=== PATIENT | male | born 1950 | race Caucasian/White ===

== ENCOUNTER 2021-12-10 04:27 | Inpatient (IN) | payer BC ==
[~2021-12-10] VITALS: Ht 177.8 cm; Wt 119.1 kg
[~2021-12-10 04:27] MED LIST: AMLO-496 PO; ASPI1TAB20 PO; FLUO10CA15 PO; LISI20TA28 PO; LOVA40TA72 PO; MULT-228 PO; OLAN20TA30 PO; TRAZ100T3 PO; [UNRECOGNIZED DRUG - CODE] PO
[2021-12-10] MEDS ORDERED: ALBUTEROL SULF 2.5 MG/0.5ML(0.5%) NEB SOLN HHN ONE (04:45)
[2021-12-10] MEDS ORDERED: ONDANSETRON HCL 4 MG/2 ML VIAL IV ONE (04:45)
[2021-12-10] MEDS ORDERED: IPRATROPIUM BROM 0.5 MG/2.5ML INH SOL HHN ONE (04:45)
[2021-12-10] MEDS ORDERED: methylPREDNISolone SOD SUCC 125 MG/2 ML VL IV ONE (04:45)
[2021-12-10] MEDS ORDERED: levoFLOXacin 500MG 100 ML IV ONE (05:15)
[2021-12-10 05:36] LABS: Basophils # (auto) 0 10 ^3/uL (0-0.2); Basophils % (auto) 0.4 % (0.0-2.0); Eosinophils # (auto) 0 10 ^3/uL (0-0.8); Eosinophils % (auto) 0.2 % (0.0-7.0); Hematocrit 25.4 % (41.0-53.0); Hemoglobin 8.9 g/dL (13.5-17.5); Lymphocytes # (auto) 0.8 10 ^3/uL (0.4-5.4); Lymphocytes % (auto) 6.4 % (10.0-50.0); Mean Corpuscular Hemoglobin 29.7 pg (28.0-32.0); Mean Corpuscular Hgb Conc. 34.9 g/dL (32.0-36.0); Mean Corpuscular Volume 85.3 fL (80.0-100.0); Monocytes # (auto) 1.1 10 ^3/uL (0-1.3); Monocytes % (auto) 8.4 % (0.0-12.0); Neutrophils # (auto) 10.7 10 ^3/uL (1.6-8.6); Neutrophils % (auto) 84.6 % (37.0-80.0); Red Blood Cells 2.98 10^6/uL (4.5-5.90); Red Cell Distribution Width 13.9 % (11.8-14.3); White Blood Cell 12.6 10^3/uL (4.4-10.8)
[2021-12-10 05:42] LABS: Albumin 3.2 g/dL (3.4-5.0); Calcium 7.9 mg/dL (8.5-10.1); Potassium 3.6 mmol/L (3.5-5.1)
[2021-12-10 05:46] LABS: BUN/Creatinine Ratio 16.2; Bilirubin, Total 0.8 mg/dL (0.2-1.0); Total Protein 5.9 g/dL (6.4-8.2)
[2021-12-10] MEDS ORDERED: NITROGLYCERIN 0.4 MG SL TAB SL PRN (10:15)
[2021-12-10] MEDS ORDERED: MORPHINE SULFATE INJ 2 MG/ml SYRG IV PRN (10:15)
[2021-12-10] MEDS ORDERED: hydrALAZINE HCL 20 MG/ML VL IV PRN (11:30)
[2021-12-10] MEDS ORDERED: NICOTINE 7MG/24HR TOPICAL PATCH TD ONE (11:30)
[2021-12-10 11:45] LABS: Cholesterol 86 mg/dL (< 200)
[2021-12-10 11:48] LABS: HDL Cholesterol 58 mg/dL (40-59); LDL Cholesterol 27 mg/dL (< 100); Triglycerides 45 mg/dL (< 150)
[2021-12-10] MEDS: ALBUTEROL SULF 2.5 MG/0.5ML(0.5%) NEB SOLN NEB SCH ×2 (12:28→19:29)
[2021-12-10] MEDS: IPRATROPIUM BROM 0.5 MG/2.5ML INH SOL NEB SCH ×2 (12:28→19:28)
[2021-12-10 14:25] VITALS: BP 127/82
[2021-12-10] MEDS: OLANZapine 5 MG TAB PO SCH (21:21)
[2021-12-10] MEDS: ATORVASTATIN 20 MG TAB PO SCH (21:21)
[2021-12-10] MEDS: traZODone HCL 50 MG TAB PO SCH (21:22)
[2021-12-10] MEDS: methylPREDNISolone SOD SUCC 125 MG/2 ML VL IV SCH (21:23)
[2021-12-10 22:00] VITALS: BP 134/65
[2021-12-10] MEDS: DESIPRAMINE HCL 10 MG PO SCH (22:00)
[2021-12-11] VITALS (17 sets, daily range): BP systolic 97–222; BP diastolic 44–97
[2021-12-11] MEDS: IPRATROPIUM BROM 0.5 MG/2.5ML INH SOL NEB PRN (02:17)
[2021-12-11] MEDS: ALBUTEROL SULF 2.5 MG/0.5ML(0.5%) NEB SOLN NEB PRN (02:17)
[2021-12-11 05:37] LABS: Basophils # (auto) 0.1 10 ^3/uL (0-0.2); Basophils % (auto) 0.2 % (0.0-2.0); Eosinophils # (auto) 0 10 ^3/uL (0-0.8); Hematocrit 24.3 % (41.0-53.0); Hemoglobin 8.6 g/dL (13.5-17.5); Lymphocytes # (auto) 0.7 10 ^3/uL (0.4-5.4); Lymphocytes % (auto) 2.9 % (10.0-50.0); Mean Corpuscular Hemoglobin 29.5 pg (28.0-32.0); Mean Corpuscular Hgb Conc. 35.6 g/dL (32.0-36.0); Mean Corpuscular Volume 82.8 fL (80.0-100.0); Neutrophils # (auto) 23.3 10 ^3/uL (1.6-8.6); Neutrophils % (auto) 92.9 % (37.0-80.0); Red Blood Cells 2.93 10^6/uL (4.5-5.90); Red Cell Distribution Width 13.7 % (11.8-14.3)
[2021-12-11 05:41] LABS: Calcium 8.4 mg/dL (8.5-10.1); Potassium 3.6 mmol/L (3.5-5.1)
[2021-12-11 05:45] LABS: Albumin 3.2 g/dL (3.4-5.0); BUN/Creatinine Ratio 26.6
[2021-12-11 05:46] LABS: Bilirubin, Total 0.8 mg/dL (0.2-1.0); Total Protein 6.7 g/dL (6.4-8.2)
[2021-12-11] MEDS: ALBUTEROL SULF 2.5 MG/0.5ML(0.5%) NEB SOLN NEB SCH ×3 (06:07→18:08)
[2021-12-11] MEDS: IPRATROPIUM BROM 0.5 MG/2.5ML INH SOL NEB SCH ×3 (06:07→18:08)
[2021-12-11] MEDS: cefTRIAXone 1GM/50ML D5W 50 ML IV SCH (08:20)
[2021-12-11] MEDS: FLUoxetine HCL 10 MG CAP PO SCH (09:30)
[2021-12-11] MEDS: ASPirin-EC 81 mg tab PO SCH (09:30)
[2021-12-11] MEDS: amLODIPine BESYLATE 5 MG TAB PO SCH (09:31)
[2021-12-11] MEDS: LISINOPRIL 20 MG TAB PO SCH (09:31)
[2021-12-11] MEDS: ENOXAPARIN SOD 40 MG/0.4 ML SYRINGE SC SCH (09:31)
[2021-12-11] MEDS: methylPREDNISolone SOD SUCC 125 MG/2 ML VL IV SCH ×2 (09:33→22:00)
[2021-12-11] MEDS: AZITHROMYCIN 500MG/ 250ML 250 ML IV SCH (09:33)
[2021-12-11] MEDS: NICOTINE 7MG/24HR TOPICAL PATCH TD SCH (09:40)
[2021-12-11] MEDS ORDERED: FUROSEMIDE 40 MG/4 ML VIAL IV ONE (10:30)
[2021-12-11 12:57] LABS: Urine Bacteria NONE SEEN /hpf (None Seen); Urine Blood TRACE /uL (Negative); Urine Specific Gravity 1.012 (1.001-1.035); Urine WBC 1 /hpf (0 - 3)
[2021-12-11] MEDS: DESIPRAMINE HCL 10 MG PO SCH (22:00)
[2021-12-11] MEDS: OLANZapine 5 MG TAB PO SCH (22:00)
[2021-12-11] MEDS: ATORVASTATIN 20 MG TAB PO SCH (22:00)
[2021-12-11] MEDS: traZODone HCL 50 MG TAB PO SCH (22:00)
[2021-12-11] MEDS ORDERED: LORazepam 2MG/ML-1ML VIAL ONE (22:47)
[2021-12-11] MEDS ORDERED: ETOMIDATE (2MG/ML) 20ML VIAL IV ONE (23:17)
[2021-12-11] MEDS ORDERED: SUCCINYLCHOLINE CHLORIDE 20 MG/ML 10ML VIAL IV ONE ×2 (23:18→23:30)
[2021-12-11] MEDS: PROPOFOL 100 ML IV SCH (23:35)
[2021-12-11] MEDS ORDERED: PROPOFOL 100 ML IV ONE (23:35)
[2021-12-11] MEDS ORDERED: fentaNYL Drip 2500mCg/250mlNS 250 ML IV ONE (23:47)
[2021-12-12] VITALS (105 sets, daily range): BP systolic 58–139; BP diastolic 21–93
[2021-12-12] MEDS ORDERED: NOREPINEPHRINE 8 MG/250ML KIT 250 ML IV ONE (00:25)
[2021-12-12] MEDS: NOREPINEPHRINE 8 MG/250ML KIT 250 ML IV SCH ×2 (00:30→06:40)
[2021-12-12] MEDS: MIDAZOLAM DRIP 50 mg/50mL 50 ML IV SCH ×4 (02:46→22:27)
[2021-12-12] MEDS ORDERED: SUCCINYLCHOLINE CHLORIDE 20 MG/ML 10ML VIAL IV ONE (03:30)
[2021-12-12] MEDS ORDERED: ETOMIDATE (2MG/ML) 20ML VIAL IV ONE (03:30)
[2021-12-12 04:15] LABS: Hemoglobin 7.2 g/dL (13.5-17.5); Mean Corpuscular Hemoglobin 30.2 pg (28.0-32.0); Red Blood Cells 2.38 10^6/uL (4.5-5.90); Red Cell Distribution Width 13.8 % (11.8-14.3); White Blood Cell 24.9 10^3/uL (4.4-10.8)
[2021-12-12 04:29] LABS: BUN/Creatinine Ratio 24.8; Calcium 7.6 mg/dL (8.5-10.1); Potassium 4.3 mmol/L (3.5-5.1)
[2021-12-12 04:37] LABS: Basophils % (manual) 0 (0.0-2.0); Eosinophils % (manual) 0 (0-7); Metamyelocytes % 0; Myelocytes % 0; Promyelocytes % 0; Reactive Lymphocytes 0
[2021-12-12] MEDS: ALBUTEROL SULF 2.5 MG/0.5ML(0.5%) NEB SOLN NEB SCH ×3 (06:18→18:59)
[2021-12-12] MEDS: IPRATROPIUM BROM 0.5 MG/2.5ML INH SOL NEB SCH ×3 (06:18→18:59)
[2021-12-12 08:32] LABS: Band Neutrophils % (manual) 4; Blast Cells 1; Lymphocytes % (manual) 8 (10.0-50.0); Monocytes % (manual) 6 (0-12)
[2021-12-12] MEDS ORDERED: VANCOMYCIN PER PHARMACY 0 MG IV SCH (09:00)
[2021-12-12 09:20] LABS: Hematocrit 18.6 % (41.0-53.0)
[2021-12-12 09:36] LABS: Hemoglobin 6.6 g/dL (13.5-17.5)
[2021-12-12] MEDS: NICOTINE 7MG/24HR TOPICAL PATCH TD SCH (10:00)
[2021-12-12] MEDS: FLUoxetine HCL 10 MG CAP PO SCH (10:00)
[2021-12-12] MEDS: ENOXAPARIN SOD 40 MG/0.4 ML SYRINGE SC SCH (10:00)
[2021-12-12] MEDS: ASPirin-EC 81 mg tab PO SCH (10:00)
[2021-12-12] MEDS: LISINOPRIL 20 MG TAB PO SCH (10:00)
[2021-12-12] MEDS: amLODIPine BESYLATE 5 MG TAB PO SCH (10:00)
[2021-12-12] MEDS: cefTRIAXone 1GM/50ML D5W 50 ML IV SCH (10:21)
[2021-12-12] MEDS: VANCOMYCIN 1GM/250ML 250 ML IV SCH ×2 (10:24→22:15)
[2021-12-12] MEDS: methylPREDNISolone SOD SUCC 125 MG/2 ML VL IV SCH ×2 (10:24→22:14)
[2021-12-12 11:11] LABS: INR 1.06 (0.9-1.15); Partial Thromboplastin Time 32.1 sec (24.6-33.4)
[2021-12-12] MEDS: AZITHROMYCIN 500MG/ 250ML 250 ML IV SCH (11:28)
[2021-12-12] MEDS: fentaNYL Drip 2500mCg/250mlNS 250 ML IV SCH ×2 (11:35)
[2021-12-12] MEDS: OLANZapine 5 MG TAB PO SCH (22:00)
[2021-12-12] MEDS: traZODone HCL 50 MG TAB PO SCH (22:00)
[2021-12-12] MEDS: DESIPRAMINE HCL 10 MG PO SCH (22:00)
[2021-12-12] MEDS: ATORVASTATIN 20 MG TAB PO SCH (22:14)
[2021-12-13] VITALS (106 sets, daily range): BP systolic 95–126; BP diastolic 37–61
[2021-12-13] MEDS: fentaNYL Drip 2500mCg/250mlNS 250 ML IV SCH ×2 (00:59→15:07)
[2021-12-13] MEDS: PROPOFOL 100 ML IV SCH ×3 (03:10→22:31)
[2021-12-13] MEDS: MIDAZOLAM DRIP 50 mg/50mL 50 ML IV SCH ×3 (04:05→23:50)
[2021-12-13 04:52] LABS: Basophils # (auto) 0 10 ^3/uL (0-0.2); Basophils % (auto) 0.2 % (0.0-2.0); Eosinophils # (auto) 0 10 ^3/uL (0-0.8); Hematocrit 20.2 % (41.0-53.0); Hemoglobin 7.2 g/dL (13.5-17.5); Lymphocytes # (auto) 0.7 10 ^3/uL (0.4-5.4); Lymphocytes % (auto) 4.9 % (10.0-50.0); Mean Corpuscular Hemoglobin 30.2 pg (28.0-32.0); Mean Corpuscular Hgb Conc. 35.6 g/dL (32.0-36.0); Mean Corpuscular Volume 84.8 fL (80.0-100.0); Monocytes # (auto) 0.5 10 ^3/uL (0-1.3); Monocytes % (auto) 3.6 % (0.0-12.0); Neutrophils # (auto) 12.2 10 ^3/uL (1.6-8.6); Neutrophils % (auto) 91.3 % (37.0-80.0); Nucleated Red Blood Cells % 0.1 %; Red Blood Cells 2.39 10^6/uL (4.5-5.90); Red Cell Distribution Width 14.5 % (11.8-14.3); White Blood Cell 13.4 10^3/uL (4.4-10.8)
[2021-12-13 05:13] LABS: Albumin 2.7 g/dL (3.4-5.0); BUN/Creatinine Ratio 35.2; Calcium 7.7 mg/dL (8.5-10.1); Phosphorus 4.6 mg/dL (2.5-4.90); Potassium 4.8 mmol/L (3.5-5.1)
[2021-12-13] MEDS: IPRATROPIUM BROM 0.5 MG/2.5ML INH SOL NEB SCH ×3 (06:34→18:40)
[2021-12-13] MEDS: ALBUTEROL SULF 2.5 MG/0.5ML(0.5%) NEB SOLN NEB SCH ×3 (06:35→18:40)
[2021-12-13 07:15] LABS: Hemoglobin 7.2 g/dL (13.5-17.5)
[2021-12-13 07:18] LABS: Hematocrit 20.3 % (41.0-53.0)
[2021-12-13] MEDS ORDERED: SODIUM CHLORIDE LOCK 0 ML ONE (07:42)
[2021-12-13] MEDS ORDERED: LIDOCAINE 2%HCL (LOCAL ANESTH.) INJ 20ML MDV ONE (07:42)
[2021-12-13] MEDS ORDERED: fentaNYL CITRATE 100 MCG/2 ML VL ONE (07:43)
[2021-12-13] MEDS ORDERED: MIDAZOLAM HCL 5 MG/ML-1ML VIAL ONE (07:43)
[2021-12-13] MEDS ORDERED: EPINEPHrine HCL 1 MG/1 ML AMP ONE (07:43)
[2021-12-13] MEDS ORDERED: GLYCOPYRROLATE 0.2 MG/ML 1ML VIAL ONE (07:43)
[2021-12-13] MEDS ORDERED: LIDOCAINE 2% JELLY 11ml (GLYDO) ONE ×2 (07:44)
[2021-12-13] MEDS ORDERED: diphenhdrAMINE HCL 50 MG/1 ML VL ONE (07:45)
[2021-12-13] MEDS ORDERED: NALOXONE HCL 0.4 MG/ML VIAL ONE (07:45)
[2021-12-13] MEDS ORDERED: FLUMAZENIL 0.1 MG/ML INJ 10ML MDV IV ONE (07:45)
[2021-12-13] MEDS ORDERED: BENZOCAINE (DENTAL) 20 % SPRAY 60ML MT ONE (07:45)
[2021-12-13] MEDS ORDERED: EPINEPHrine HCL 1 MG/10 ML SYRG ONE (07:45)
[2021-12-13] MEDS: amLODIPine BESYLATE 5 MG TAB PO SCH (09:18)
[2021-12-13] MEDS: NICOTINE 7MG/24HR TOPICAL PATCH TD SCH (09:19)
[2021-12-13] MEDS: LISINOPRIL 20 MG TAB PO SCH (09:19)
[2021-12-13] MEDS: ASPirin-EC 81 mg tab PO SCH (09:27)
[2021-12-13] MEDS: cefTRIAXone 1GM/50ML D5W 50 ML IV SCH (09:28)
[2021-12-13] MEDS: methylPREDNISolone SOD SUCC 125 MG/2 ML VL IV SCH ×2 (09:29→22:30)
[2021-12-13] MEDS: FLUoxetine HCL 10 MG CAP PO SCH (09:59)
[2021-12-13] MEDS: NOREPINEPHRINE 8 MG/250ML KIT 250 ML IV SCH (10:00)
[2021-12-13] MEDS: VANCOMYCIN 1GM/250ML 250 ML IV SCH ×2 (10:00→22:30)
[2021-12-13] MEDS: AZITHROMYCIN 500MG/ 250ML 250 ML IV SCH (10:00)
[2021-12-13] MEDS: traZODone HCL 50 MG TAB PO SCH (22:00)
[2021-12-13] MEDS: DESIPRAMINE HCL 10 MG PO SCH (22:00)
[2021-12-13] MEDS: ATORVASTATIN 20 MG TAB PO SCH (22:30)
[2021-12-13] MEDS: OLANZapine 5 MG TAB PO SCH (22:31)
[2021-12-14] VITALS (103 sets, daily range): BP systolic 94–125; BP diastolic 35–56
[2021-12-14 04:37] LABS: Albumin 2.6 g/dL (3.4-5.0); Calcium 7.6 mg/dL (8.5-10.1); Potassium 5.3 mmol/L (3.5-5.1)
[2021-12-14] MEDS: fentaNYL Drip 2500mCg/250mlNS 250 ML IV SCH ×2 (04:37→17:45)
[2021-12-14 04:38] LABS: Magnesium 3.2 mg/dL (1.6-2.6)
[2021-12-14 04:40] LABS: BUN/Creatinine Ratio 43.2; Bilirubin, Total 0.6 mg/dL (0.2-1.0); Total Protein 5.1 g/dL (6.4-8.2)
[2021-12-14 05:06] LABS: Basophils # (auto) 0.1 10 ^3/uL (0-0.2); Basophils % (auto) 0.5 % (0.0-2.0); Eosinophils # (auto) 0 10 ^3/uL (0-0.8); Eosinophils % (auto) 0.2 % (0.0-7.0); Hematocrit 21.3 % (41.0-53.0); Hemoglobin 7.5 g/dL (13.5-17.5); Lymphocytes # (auto) 0.7 10 ^3/uL (0.4-5.4); Monocytes # (auto) 0.8 10 ^3/uL (0-1.3); Neutrophils % (auto) 89.5 % (37.0-80.0); Nucleated Red Blood Cells % 0.2 %
[2021-12-14 05:12] LABS: Lymphocytes % (auto) 4.5 % (10.0-50.0); Mean Corpuscular Hemoglobin 30.2 pg (28.0-32.0); Mean Corpuscular Hgb Conc. 35.1 g/dL (32.0-36.0); Mean Corpuscular Volume 86.2 fL (80.0-100.0); Monocytes % (auto) 5.3 % (0.0-12.0); Neutrophils # (auto) 13.6 10 ^3/uL (1.6-8.6); Red Blood Cells 2.47 10^6/uL (4.5-5.90); Red Cell Distribution Width 14.2 % (11.8-14.3); White Blood Cell 15.2 10^3/uL (4.4-10.8)
[2021-12-14] MEDS: ALBUTEROL SULF 2.5 MG/0.5ML(0.5%) NEB SOLN NEB SCH ×3 (06:51→18:49)
[2021-12-14] MEDS: IPRATROPIUM BROM 0.5 MG/2.5ML INH SOL NEB SCH ×3 (06:51→18:49)
[2021-12-14] MEDS: NICOTINE 7MG/24HR TOPICAL PATCH TD SCH (09:00)
[2021-12-14] MEDS: LISINOPRIL 20 MG TAB PO SCH (09:00)
[2021-12-14] MEDS: amLODIPine BESYLATE 5 MG TAB PO SCH (09:00)
[2021-12-14] MEDS: ASPirin-EC 81 mg tab PO SCH (09:00)
[2021-12-14] MEDS: methylPREDNISolone SOD SUCC 125 MG/2 ML VL IV SCH ×2 (09:53→22:34)
[2021-12-14] MEDS: FLUoxetine HCL 10 MG CAP PO SCH (09:54)
[2021-12-14] MEDS: PANTOPRAZOLE 40 MG/10 ML VIAL INJ IV SCH (09:54)
[2021-12-14] MEDS: cefTRIAXone 1GM/50ML D5W 50 ML IV SCH (09:54)
[2021-12-14] MEDS: AZITHROMYCIN 500MG/ 250ML 250 ML IV SCH (10:00)
[2021-12-14] MEDS ORDERED: PANTOPRAZOLE 40 MG TAB PO SCH (10:00)
[2021-12-14] MEDS: VANCOMYCIN 1GM/250ML 250 ML IV SCH (10:46)
[2021-12-14] MEDS ORDERED: LIDOCAINE 1% (LOCAL ANESTH.) PF 5ml SDV ID ONE (14:30)
[2021-12-14] MEDS: MIDAZOLAM DRIP 50 mg/50mL 50 ML IV SCH (18:50)
[2021-12-14] MEDS: NOREPINEPHRINE 8 MG/250ML KIT 250 ML IV SCH (18:50)
[2021-12-14] MEDS: PROPOFOL 100 ML IV SCH (18:50)
[2021-12-14 18:57] LABS: Protein, Urine 18.1 mg/dL (0.0-11.9)
[2021-12-14 18:59] LABS: Urine Bacteria FEW /hpf (None Seen); Urine Blood 3+ /uL (Negative); Urine WBC 7 /hpf (0 - 3)
[2021-12-14] MEDS: traZODone HCL 50 MG TAB PO SCH (22:00)
[2021-12-14] MEDS: OLANZapine 5 MG TAB PO SCH (22:00)
[2021-12-14] MEDS: DESIPRAMINE HCL 10 MG PO SCH (22:00)
[2021-12-14] MEDS: SODIUM CHLOR 0.9% PF (SALINE LOCK) 10ML VIAL/SYR IV SCH (22:33)
[2021-12-14] MEDS: ATORVASTATIN 20 MG TAB PO SCH (22:35)
[2021-12-15] VITALS (103 sets, daily range): BP systolic 92–139; BP diastolic 40–57
[2021-12-15] MEDS: MIDAZOLAM DRIP 50 mg/50mL 50 ML IV SCH ×3 (01:50→21:22)
[2021-12-15] MEDS: PROPOFOL 100 ML IV SCH ×3 (01:50→21:22)
[2021-12-15 04:25] LABS: Basophils # (auto) 0 10 ^3/uL (0-0.2); Basophils % (auto) 0.2 % (0.0-2.0); Eosinophils # (auto) 0 10 ^3/uL (0-0.8); Hemoglobin 7.7 g/dL (13.5-17.5); Mean Corpuscular Hgb Conc. 35.2 g/dL (32.0-36.0); Nucleated Red Blood Cells % 0.2 %
[2021-12-15 04:26] LABS: Hematocrit 21.8 % (41.0-53.0); Lymphocytes # (auto) 0.5 10 ^3/uL (0.4-5.4); Lymphocytes % (auto) 2.9 % (10.0-50.0); Mean Corpuscular Hemoglobin 30.3 pg (28.0-32.0); Monocytes # (auto) 0.7 10 ^3/uL (0-1.3); Monocytes % (auto) 4.6 % (0.0-12.0); Neutrophils # (auto) 14.9 10 ^3/uL (1.6-8.6); Neutrophils % (auto) 92.3 % (37.0-80.0); Red Blood Cells 2.54 10^6/uL (4.5-5.90); Red Cell Distribution Width 14.6 % (11.8-14.3); White Blood Cell 16.1 10^3/uL (4.4-10.8)
[2021-12-15 04:42] LABS: Albumin 2.6 g/dL (3.4-5.0); Calcium 7.5 mg/dL (8.5-10.1); Potassium 5.5 mmol/L (3.5-5.1); Uric Acid 7.3 mg/dL (3.5-7.2)
[2021-12-15 04:45] LABS: BUN/Creatinine Ratio 41.1; Bilirubin, Total 0.6 mg/dL (0.2-1.0); Phosphorus 6.1 mg/dL (2.5-4.90); Total Protein 5.2 g/dL (6.4-8.2)
[2021-12-15] MEDS: IPRATROPIUM BROM 0.5 MG/2.5ML INH SOL NEB SCH ×3 (06:43→18:25)
[2021-12-15] MEDS: ALBUTEROL SULF 2.5 MG/0.5ML(0.5%) NEB SOLN NEB SCH ×3 (06:43→18:25)
[2021-12-15] MEDS: cefTRIAXone 1GM/50ML D5W 50 ML IV SCH (09:06)
[2021-12-15] MEDS: amLODIPine BESYLATE 5 MG TAB PO SCH (10:00)
[2021-12-15] MEDS: FLUoxetine HCL 10 MG CAP PO SCH (10:00)
[2021-12-15] MEDS: ASPirin-EC 81 mg tab PO SCH (10:00)
[2021-12-15] MEDS: PANTOPRAZOLE 40 MG/10 ML VIAL INJ IV SCH (10:15)
[2021-12-15] MEDS: methylPREDNISolone SOD SUCC 125 MG/2 ML VL IV SCH (10:16)
[2021-12-15] MEDS: AZITHROMYCIN 500MG/ 250ML 250 ML IV SCH (10:16)
[2021-12-15] MEDS: NICOTINE 7MG/24HR TOPICAL PATCH TD SCH (10:17)
[2021-12-15] MEDS: SODIUM CHLOR 0.9% PF (SALINE LOCK) 10ML VIAL/SYR IV SCH ×2 (10:20→22:09)
[2021-12-15] MEDS: fentaNYL Drip 2500mCg/250mlNS 250 ML IV SCH (18:50)
[2021-12-15] MEDS ORDERED: MICAFUNGIN SODIUM 100 MG in SODIUM CHL 0.9% 100 ML IV ONE (19:00)
[2021-12-15] MEDS: SODIUM CHLORIDE 0.9% 1,000 ML IV SCH (19:16)
[2021-12-15] MEDS: AMPICILLIN & SULBACTAM SODIUM 3 GM in SODIUM CHL 0.9% 100 ML IV SCH (21:22)
[2021-12-15] MEDS: methylPREDNISolone SOD SUCC 40 MG/ML VL IV SCH (22:10)
[2021-12-15] MEDS: IPRATROPIUM BROM 0.5 MG/2.5ML INH SOL NEB PRN (23:31)
[2021-12-15] MEDS: ALBUTEROL SULF 2.5 MG/0.5ML(0.5%) NEB SOLN NEB PRN (23:31)
[2021-12-16] VITALS (87 sets, daily range): BP systolic 96–163; BP diastolic 39–57
[2021-12-16] MEDS: NOREPINEPHRINE 8 MG/250ML KIT 250 ML IV SCH (00:30)
[2021-12-16] MEDS: AMPICILLIN & SULBACTAM SODIUM 3 GM in SODIUM CHL 0.9% 100 ML IV SCH ×4 (03:19→21:22)
[2021-12-16 04:15] LABS: Hemoglobin 7.6 g/dL (13.5-17.5); Mean Corpuscular Hemoglobin 29.7 pg (28.0-32.0); White Blood Cell 16.2 10^3/uL (4.4-10.8)
[2021-12-16 04:17] LABS: Hematocrit 21.9 % (41.0-53.0); Mean Corpuscular Hgb Conc. 34.5 g/dL (32.0-36.0); Mean Corpuscular Volume 86.1 fL (80.0-100.0); Red Blood Cells 2.54 10^6/uL (4.5-5.90); Red Cell Distribution Width 14.2 % (11.8-14.3)
[2021-12-16 04:25] LABS: Basophils % (manual) 0 (0.0-2.0); Blast Cells 0; Eosinophils % (manual) 0 (0-7); Metamyelocytes % 0; Myelocytes % 0; Promyelocytes % 0; Reactive Lymphocytes 0
[2021-12-16 04:41] LABS: Albumin 2.7 g/dL (3.4-5.0); BUN/Creatinine Ratio 42.4; Calcium 7.5 mg/dL (8.5-10.1); Potassium 5.3 mmol/L (3.5-5.1)
[2021-12-16 04:44] LABS: Bilirubin, Total 0.7 mg/dL (0.2-1.0); Total Protein 5.2 g/dL (6.4-8.2)
[2021-12-16 05:01] LABS: Band Neutrophils % (manual) 5; Lymphocytes % (manual) 4 (10.0-50.0); Monocytes % (manual) 2 (0-12)
[2021-12-16] MEDS: ALBUTEROL SULF 2.5 MG/0.5ML(0.5%) NEB SOLN NEB SCH ×3 (06:40→18:21)
[2021-12-16] MEDS: IPRATROPIUM BROM 0.5 MG/2.5ML INH SOL NEB SCH ×3 (06:40→18:21)
[2021-12-16] MEDS: SODIUM CHLORIDE 0.9% 1,000 ML IV SCH ×2 (08:20→22:18)
[2021-12-16] MEDS: SODIUM CHLOR 0.9% PF (SALINE LOCK) 10ML VIAL/SYR IV SCH ×2 (10:10→22:18)
[2021-12-16] MEDS: methylPREDNISolone SOD SUCC 40 MG/ML VL IV SCH ×2 (10:10→22:19)
[2021-12-16] MEDS: PANTOPRAZOLE 40 MG/10 ML VIAL INJ IV SCH (10:11)
[2021-12-16] MEDS: MICAFUNGIN SODIUM 100 MG in SODIUM CHL 0.9% 100 ML IV SCH (10:13)
[2021-12-16] MEDS: MIDAZOLAM DRIP 50 mg/50mL 50 ML IV SCH ×2 (10:36→22:18)
[2021-12-16] MEDS: PROPOFOL 100 ML IV SCH ×2 (10:36→17:56)
[2021-12-16] MEDS: fentaNYL Drip 2500mCg/250mlNS 250 ML IV SCH (11:30)
[2021-12-17] VITALS (99 sets, daily range): BP systolic 111–142; BP diastolic 34–58
[2021-12-17] MEDS: ALBUTEROL SULF 2.5 MG/0.5ML(0.5%) NEB SOLN NEB SCH ×4 (00:18→18:20)
[2021-12-17] MEDS: IPRATROPIUM BROM 0.5 MG/2.5ML INH SOL NEB SCH ×4 (00:18→18:20)
[2021-12-17] MEDS: NOREPINEPHRINE 8 MG/250ML KIT 250 ML IV SCH (00:30)
[2021-12-17] MEDS: PROPOFOL 100 ML IV SCH ×2 (00:50→16:23)
[2021-12-17] MEDS: AMPICILLIN & SULBACTAM SODIUM 3 GM in SODIUM CHL 0.9% 100 ML IV SCH ×3 (03:21→16:47)
[2021-12-17 06:52] LABS: Mean Corpuscular Hemoglobin 29.8 pg (28.0-32.0); White Blood Cell 18.2 10^3/uL (4.4-10.8)
[2021-12-17 06:55] LABS: Hematocrit 20.5 % (41.0-53.0); Mean Corpuscular Volume 87.5 fL (80.0-100.0); Red Blood Cells 2.34 10^6/uL (4.5-5.90); Red Cell Distribution Width 14.6 % (11.8-14.3)
[2021-12-17 07:03] LABS: Albumin 2.5 g/dL (3.4-5.0); Calcium 7.4 mg/dL (8.5-10.1)
[2021-12-17 07:06] LABS: BUN/Creatinine Ratio 54.5; Bilirubin, Total 0.6 mg/dL (0.2-1.0)
[2021-12-17 07:11] LABS: Potassium 6.1 mmol/L (3.5-5.1)
[2021-12-17 07:21] LABS: Basophils % (manual) 0 (0.0-2.0); Blast Cells 0; Eosinophils % (manual) 0 (0-7); Myelocytes % 0; Promyelocytes % 0; Reactive Lymphocytes 0
[2021-12-17] MEDS: SODIUM CHLOR 0.9% PF (SALINE LOCK) 10ML VIAL/SYR IV SCH ×2 (07:28→21:47)
[2021-12-17] MEDS: methylPREDNISolone SOD SUCC 40 MG/ML VL IV SCH (08:37)
[2021-12-17] MEDS: PANTOPRAZOLE 40 MG/10 ML VIAL INJ IV SCH ×2 (08:37→21:39)
[2021-12-17] MEDS: MICAFUNGIN SODIUM 100 MG in SODIUM CHL 0.9% 100 ML IV SCH (08:38)
[2021-12-17] MEDS ORDERED: SODIUM ZIRCONIUM CYCL 10 GM PAK PO ONE ×3 (08:45→23:00)
[2021-12-17] MEDS ORDERED: DEXTROSE (50%) 50ML SYRG IV ONE ×2 (08:45→23:00)
[2021-12-17] MEDS ORDERED: SODIUM BICARBONATE 8.4 % INJ 50ML VIAL IV ONE (08:45)
[2021-12-17] MEDS ORDERED: InsuLIN REG 1unit/0.01ml Soln (100units/ml) IV ONE ×2 (08:45→23:00)
[2021-12-17] MEDS ORDERED: CALCIUM GLUC 1,000mg/50ml-NS 50 ML IV ONE ×2 (08:45→23:00)
[2021-12-17 09:16] LABS: Band Neutrophils % (manual) 1; Lymphocytes % (manual) 7 (10.0-50.0); Metamyelocytes % 1; Monocytes % (manual) 2 (0-12)
[2021-12-17] MEDS: SODIUM CHLORIDE 0.9% 1,000 ML IV SCH (11:00)
[2021-12-17] MEDS ORDERED: SODIUM ZIRCONIUM CYCL 10 GM PAK PO SCH (11:30)
[2021-12-17] MEDS: DOPamine 1600MCG/ML D5W 250 ML IV SCH (11:37)
[2021-12-17] MEDS ORDERED: Nepro With Carb Steady 1 Liter Bottle GT SCH (14:15)
[2021-12-17] MEDS ORDERED: LACTULOSE 20Gm/30ML SOLN PO ONE (14:15)
[2021-12-17] MEDS: SOD CHL 0.45% 1,000 ML IV SCH (14:15)
[2021-12-17] MEDS: fentaNYL Drip 2500mCg/250mlNS 250 ML IV SCH ×2 (16:22)
[2021-12-17] MEDS: MIDAZOLAM DRIP 50 mg/50mL 50 ML IV SCH (16:23)
[2021-12-17 17:20] LABS: BUN/Creatinine Ratio 53.5; Calcium 7.7 mg/dL (8.5-10.1)
[2021-12-17 17:26] LABS: Potassium 6.2 mmol/L (3.5-5.1)
[2021-12-17] MEDS: VORICONAZOLE 50 MG TAB PO SCH (17:40)
[2021-12-17] MEDS: LACTULOSE 20Gm/30ML SOLN PO SCH (21:40)
[2021-12-18] VITALS (90 sets, daily range): BP systolic 80–131; BP diastolic 26–52
[2021-12-18] MEDS: NOREPINEPHRINE 8 MG/250ML KIT 250 ML IV SCH ×2 (00:30→13:45)
[2021-12-18] MEDS: AMPICILLIN & SULBACTAM SODIUM 3 GM in SODIUM CHL 0.9% 100 ML IV SCH ×3 (00:47→18:26)
[2021-12-18] MEDS: PROPOFOL 100 ML IV SCH ×4 (02:51→21:23)
[2021-12-18] MEDS: VORICONAZOLE 50 MG TAB PO SCH ×2 (03:10→15:49)
[2021-12-18] MEDS: SOD CHL 0.45% 1,000 ML IV SCH (03:45)
[2021-12-18 04:49] LABS: Hemoglobin 7.3 g/dL (13.5-17.5); Mean Corpuscular Volume 88.2 fL (80.0-100.0)
[2021-12-18 04:51] LABS: Hematocrit 21.4 % (41.0-53.0); Mean Corpuscular Hemoglobin 30.2 pg (28.0-32.0); Mean Corpuscular Hgb Conc. 34.3 g/dL (32.0-36.0); Red Blood Cells 2.43 10^6/uL (4.5-5.90); Red Cell Distribution Width 14.9 % (11.8-14.3); White Blood Cell 18.8 10^3/uL (4.4-10.8)
[2021-12-18 04:53] LABS: Band Neutrophils % (manual) 0; Basophils % (manual) 0 (0.0-2.0); Blast Cells 0; Eosinophils % (manual) 0 (0-7); Myelocytes % 0; Promyelocytes % 0; Reactive Lymphocytes 0
[2021-12-18 05:06] LABS: BUN/Creatinine Ratio 54.6; Calcium 7.9 mg/dL (8.5-10.1)
[2021-12-18 05:07] LABS: % Iron Saturation 7.7 % (20-55)
[2021-12-18 05:15] LABS: Potassium 5.9 mmol/L (3.5-5.1)
[2021-12-18] MEDS ORDERED: BUMETANIDE 2.5mg/10ml (0.25 mg/ml) INJ IV ONE (05:30)
[2021-12-18] MEDS: IPRATROPIUM BROM 0.5 MG/2.5ML INH SOL NEB SCH ×3 (06:32→18:14)
[2021-12-18] MEDS: ALBUTEROL SULF 2.5 MG/0.5ML(0.5%) NEB SOLN NEB SCH ×3 (06:33→18:14)
[2021-12-18] MEDS: fentaNYL Drip 2500mCg/250mlNS 250 ML IV SCH (07:54)
[2021-12-18 08:22] LABS: Lymphocytes % (manual) 6 (10.0-50.0); Metamyelocytes % 1; Monocytes % (manual) 6 (0-12)
[2021-12-18] MEDS: LACTULOSE 20Gm/30ML SOLN PO SCH ×3 (09:18→21:38)
[2021-12-18] MEDS: PANTOPRAZOLE 40 MG/10 ML VIAL INJ IV SCH ×2 (09:20→21:38)
[2021-12-18] MEDS ORDERED: SODIUM BICARBONATE 50ML VIAL 50 ML in D5W 5% 1,000 ML IV SCH (09:30)
[2021-12-18] MEDS ORDERED: SOD CHL 0.45% 1,000 ML IV SCH (09:30)
[2021-12-18] MEDS: MICAFUNGIN SODIUM 100 MG in SODIUM CHL 0.9% 100 ML IV SCH (10:31)
[2021-12-18] MEDS: SODIUM CHLOR 0.9% PF (SALINE LOCK) 10ML VIAL/SYR IV SCH ×2 (10:31→21:38)
[2021-12-18] MEDS: DOPamine 1600MCG/ML D5W 250 ML IV SCH (13:30)
[2021-12-18] MEDS ORDERED: VORICONAZOLE INJ 0 MG in D5W 5% 250 ML IV SCH (14:15)
[2021-12-18] MEDS: SODIUM BICARBONATE 50ML VIAL 50 ML in D5W 5% 1,000 ML IV SCH ×2 (15:23→20:45)
[2021-12-19] VITALS (100 sets, daily range): BP systolic 82–174; BP diastolic 22–65
[2021-12-19] MEDS: AMPICILLIN & SULBACTAM SODIUM 3 GM in SODIUM CHL 0.9% 100 ML IV SCH ×2 (01:00→08:26)
[2021-12-19] MEDS: VORICONAZOLE 50 MG TAB PO SCH (03:25)
[2021-12-19 04:41] LABS: Basophils # (auto) 0 10 ^3/uL (0-0.2); Eosinophils # (auto) 0.3 10 ^3/uL (0-0.8); Lymphocytes # (auto) 0.8 10 ^3/uL (0.4-5.4); Lymphocytes % (auto) 4.6 % (10.0-50.0)
[2021-12-19 04:44] LABS: Basophils % (auto) 0.2 % (0.0-2.0); Eosinophils % (auto) 1.9 % (0.0-7.0); Hematocrit 18.6 % (41.0-53.0); Mean Corpuscular Hemoglobin 30.1 pg (28.0-32.0); Mean Corpuscular Hgb Conc. 34.2 g/dL (32.0-36.0); Monocytes # (auto) 0.9 10 ^3/uL (0-1.3); Monocytes % (auto) 4.8 % (0.0-12.0); Neutrophils # (auto) 15.5 10 ^3/uL (1.6-8.6); Neutrophils % (auto) 88.5 % (37.0-80.0); Nucleated Red Blood Cells % 0.1 %; Red Blood Cells 2.11 10^6/uL (4.5-5.90); Red Cell Distribution Width 14.8 % (11.8-14.3); White Blood Cell 17.6 10^3/uL (4.4-10.8)
[2021-12-19 04:50] LABS: Hemoglobin 6.3 g/dL (13.5-17.5)
[2021-12-19 05:01] LABS: Calcium 6.4 mg/dL (8.5-10.1)
[2021-12-19 05:05] LABS: BUN/Creatinine Ratio 51.6; Bilirubin, Total 0.9 mg/dL (0.2-1.0)
[2021-12-19] MEDS: LACTULOSE 20Gm/30ML SOLN PO SCH ×3 (05:49→21:51)
[2021-12-19] MEDS: SODIUM BICARBONATE 50ML VIAL 50 ML in D5W 5% 1,000 ML IV SCH ×2 (07:08→20:50)
[2021-12-19] MEDS: ALBUTEROL SULF 2.5 MG/0.5ML(0.5%) NEB SOLN NEB SCH ×3 (07:35→18:09)
[2021-12-19] MEDS: IPRATROPIUM BROM 0.5 MG/2.5ML INH SOL NEB SCH ×3 (07:35→18:09)
[2021-12-19] MEDS: MICAFUNGIN SODIUM 100 MG in SODIUM CHL 0.9% 100 ML IV SCH (09:21)
[2021-12-19] MEDS: PANTOPRAZOLE 40 MG/10 ML VIAL INJ IV SCH ×2 (09:21→21:51)
[2021-12-19] MEDS: SODIUM CHLOR 0.9% PF (SALINE LOCK) 10ML VIAL/SYR IV SCH ×2 (09:22→21:51)
[2021-12-19] MEDS: fentaNYL Drip 2500mCg/250mlNS 250 ML IV SCH (09:57)
[2021-12-19] MEDS: MIDAZOLAM DRIP 50 mg/50mL 50 ML IV SCH ×3 (09:58→21:52)
[2021-12-19] MEDS: BUMETANIDE INJECTION 12.5 MG in GIVE UN-DILUTED 0 ML IV SCH ×2 (10:30→23:30)
[2021-12-19] MEDS ORDERED: MEROPENEM 1GM IVPB 100 ML IV ONE (12:15)
[2021-12-19] MEDS: DOPamine 1600MCG/ML D5W 250 ML IV SCH (13:52)
[2021-12-19] MEDS: CALCIUM ACETATE 667 MG CAP NG SCH ×2 (13:52→21:51)
[2021-12-19] MEDS: LINEZOLID 600MG/300ML 300 ML IV SCH ×2 (14:07→21:51)
[2021-12-20] VITALS (101 sets, daily range): BP systolic 82–198; BP diastolic 23–76
[2021-12-20] MEDS: PROPOFOL 100 ML IV SCH ×5 (00:30→17:52)
[2021-12-20] MEDS: NOREPINEPHRINE 8 MG/250ML KIT 250 ML IV SCH ×3 (00:30→21:35)
[2021-12-20] MEDS: MIDAZOLAM DRIP 50 mg/50mL 50 ML IV SCH ×3 (02:56→21:01)
[2021-12-20 04:38] LABS: Basophils # (auto) 0.1 10 ^3/uL (0-0.2); Basophils % (auto) 0.4 % (0.0-2.0); Eosinophils # (auto) 0.5 10 ^3/uL (0-0.8); Eosinophils % (auto) 2.4 % (0.0-7.0); Hematocrit 20.2 % (41.0-53.0); Hemoglobin 7.1 g/dL (13.5-17.5); Lymphocytes # (auto) 0.6 10 ^3/uL (0.4-5.4); Lymphocytes % (auto) 3.3 % (10.0-50.0); Mean Corpuscular Hemoglobin 30.6 pg (28.0-32.0); Mean Corpuscular Hgb Conc. 35.2 g/dL (32.0-36.0); Mean Corpuscular Volume 86.9 fL (80.0-100.0); Monocytes # (auto) 0.6 10 ^3/uL (0-1.3); Neutrophils # (auto) 17.9 10 ^3/uL (1.6-8.6); Neutrophils % (auto) 90.9 % (37.0-80.0); Nucleated Red Blood Cells % 0.1 %; Red Blood Cells 2.33 10^6/uL (4.5-5.90); Red Cell Distribution Width 14.6 % (11.8-14.3); White Blood Cell 19.7 10^3/uL (4.4-10.8)
[2021-12-20] MEDS: CALCIUM ACETATE 667 MG CAP NG SCH ×3 (05:50→21:33)
[2021-12-20] MEDS: LACTULOSE 20Gm/30ML SOLN PO SCH ×3 (05:50→21:32)
[2021-12-20 05:56] LABS: BUN/Creatinine Ratio 44.2; Calcium 6.8 mg/dL (8.5-10.1); Potassium 5.4 mmol/L (3.5-5.1)
[2021-12-20] MEDS: ALBUTEROL SULF 2.5 MG/0.5ML(0.5%) NEB SOLN NEB SCH ×3 (06:42→18:32)
[2021-12-20] MEDS: IPRATROPIUM BROM 0.5 MG/2.5ML INH SOL NEB SCH ×3 (06:42→18:32)
[2021-12-20] MEDS: SODIUM BICARBONATE 50ML VIAL 50 ML in D5W 5% 1,000 ML IV SCH (07:48)
[2021-12-20] MEDS: MICAFUNGIN SODIUM 100 MG in SODIUM CHL 0.9% 100 ML IV SCH (09:17)
[2021-12-20] MEDS: PANTOPRAZOLE 40 MG/10 ML VIAL INJ IV SCH ×2 (09:18→21:33)
[2021-12-20] MEDS: SODIUM CHLOR 0.9% PF (SALINE LOCK) 10ML VIAL/SYR IV SCH ×2 (09:18→21:33)
[2021-12-20] MEDS: LINEZOLID 600MG/300ML 300 ML IV SCH ×2 (10:25→21:32)
[2021-12-20] MEDS: BUMETANIDE INJECTION 12.5 MG in GIVE UN-DILUTED 0 ML IV SCH ×2 (10:25→17:54)
[2021-12-20] MEDS: MEROPENEM 1GM IVPB 100 ML IV SCH ×2 (13:38)
[2021-12-20] MEDS ORDERED: VORICONAZOLE 50 MG TAB PO ONE (13:45)
[2021-12-20] MEDS ORDERED: HEPARIN 1,000 UNITS/ml 1ML VIAL IV ONE (14:15)
[2021-12-20] MEDS: DOPamine 1600MCG/ML D5W 250 ML IV SCH (16:50)
[2021-12-20] MEDS: fentaNYL Drip 2500mCg/250mlNS 250 ML IV SCH (16:52)
[2021-12-20] MEDS ORDERED: VORICONAZOLE 50 MG TAB PO SCH (22:00)
[2021-12-21] VITALS (54 sets, daily range): BP systolic 55–127; BP diastolic 19–146
[2021-12-21] MEDS: PROPOFOL 100 ML IV SCH ×2 (00:23→06:58)
[2021-12-21] MEDS: MEROPENEM 1GM IVPB 100 ML IV SCH (00:25)
[2021-12-21] MEDS: MIDAZOLAM DRIP 50 mg/50mL 50 ML IV SCH ×2 (03:05→08:37)
[2021-12-21 04:57] LABS: Hematocrit 20.9 % (41.0-53.0); Hemoglobin 7.1 g/dL (13.5-17.5); Mean Corpuscular Hemoglobin 29.7 pg (28.0-32.0); Mean Corpuscular Hgb Conc. 33.9 g/dL (32.0-36.0); Mean Corpuscular Volume 87.6 fL (80.0-100.0); Red Blood Cells 2.39 10^6/uL (4.5-5.90); Red Cell Distribution Width 14.8 % (11.8-14.3)
[2021-12-21 05:14] LABS: BUN/Creatinine Ratio 32.5; Calcium 7.6 mg/dL (8.5-10.1)
[2021-12-21 05:16] LABS: Bilirubin, Total 0.8 mg/dL (0.2-1.0); Total Protein 4.4 g/dL (6.4-8.2)
[2021-12-21] MEDS: BUMETANIDE INJECTION 12.5 MG in GIVE UN-DILUTED 0 ML IV SCH (05:23)
[2021-12-21] MEDS: LACTULOSE 20Gm/30ML SOLN PO SCH (05:31)
[2021-12-21] MEDS: CALCIUM ACETATE 667 MG CAP NG SCH (05:31)
[2021-12-21 05:47] LABS: Potassium 6.6 mmol/L (3.5-5.1); White Blood Cell 30.5 10^3/uL (4.4-10.8)
[2021-12-21 05:48] LABS: Basophils % (manual) 0 (0.0-2.0); Blast Cells 0; Metamyelocytes % 0; Myelocytes % 0; Promyelocytes % 0; Reactive Lymphocytes 0
[2021-12-21] MEDS: IPRATROPIUM BROM 0.5 MG/2.5ML INH SOL NEB SCH ×3 (06:26→11:25)
[2021-12-21] MEDS: ALBUTEROL SULF 2.5 MG/0.5ML(0.5%) NEB SOLN NEB SCH ×3 (06:27→11:25)
[2021-12-21] MEDS ORDERED: DEXTROSE (50%) 50ML SYRG IV ONE (07:00)
[2021-12-21] MEDS ORDERED: ALBUTEROL SULF 2.5 MG/0.5ML(0.5%) NEB SOLN NEB ONE (07:00)
[2021-12-21] MEDS ORDERED: SODIUM CHL 0.9% 1000 ML BAG XX ONE ×3 (07:00)
[2021-12-21] MEDS ORDERED: CALCIUM GLUC 1,000mg/50ml-NS 50 ML IV ONE (07:00)
[2021-12-21] MEDS ORDERED: InsuLIN REG 1unit/0.01ml Soln (100units/ml) IV ONE (07:00)
[2021-12-21 09:07] LABS: Band Neutrophils % (manual) 1; Eosinophils % (manual) 4 (0-7); Lymphocytes % (manual) 4 (10.0-50.0); Monocytes % (manual) 3 (0-12)
[2021-12-21] MEDS ORDERED: VASOPRESSIN 50 UNITS in D5W 5% 247.5 ML IV SCH (09:15)
[2021-12-21] MEDS: NOREPINEPHRINE 8 MG/250ML KIT 250 ML IV SCH (09:53)
[2021-12-21] MEDS ORDERED: PHENYLEPHRINE IV 250 ML IV SCH (11:15)
[2021-12-21] MEDS ORDERED: DOPamine 1600MCG/ML D5W 0 ML IV ONE (13:07)
[2021-12-21] MEDS ORDERED: EPOETIN ALFA-EPBX 10,000 UNIT/1ML VIAL SC ONE ×2 (21:00)
== END 2021-12-21 17:50 | DRG 870 ==
LOC: ER 04:27 → EDBD 04:27 → TELE 10:17 → TELE-CENTR 21:36 → DOU IN ICU 12-11 14:57 → ICU WEST 12-12 01:15
PROVIDERS: ADMIT Registered Nurse; ATTEND Internal Medicine
PROC: 5A09357 Assistance with Respiratory Ventilation, Less than 24 Consecutive Hours, Continuous Positive Airway Pressure (ICD-10-PCS; 2021-12-11)
PROC: 05HD33Z Insertion of Infusion Device into Right Cephalic Vein, Percutaneous Approach (ICD-10-PCS; 2021-12-11)
PROC: B54MZZA Ultrasonography of Right Upper Extremity Veins, Guidance (ICD-10-PCS; 2021-12-11)
PROC: 5A1955Z Respiratory Ventilation, Greater than 96 Consecutive Hours (ICD-10-PCS; principal; 2021-12-12)
PROC: 0BH17EZ Insertion of Endotracheal Airway into Trachea, Via Natural or Artificial Opening (ICD-10-PCS; 2021-12-12)
PROC: 30233N1 Transfusion of Nonautologous Red Blood Cells into Peripheral Vein, Percutaneous Approach (ICD-10-PCS; 2021-12-12)
PROC: 0B918ZZ Drainage of Trachea, Via Natural or Artificial Opening Endoscopic (ICD-10-PCS; 2021-12-13)
PROC: 06HY33Z Insertion of Infusion Device into Lower Vein, Percutaneous Approach (ICD-10-PCS; 2021-12-21)
DX: A41.9 Sepsis, unspecified organism (principal); J96.01 Acute respiratory failure with hypoxia; N17.0 Acute kidney failure with tubular necrosis; J15.211 Pneumonia due to Methicillin susceptible Staphylococcus aureus; R65.21 Severe sepsis with septic shock; J44.1 Chronic obstructive pulmonary disease with (acute) exacerbation; J98.11 Atelectasis; J44.0 Chronic obstructive pulmonary disease with (acute) lower respiratory infection; E44.0 Moderate protein-calorie malnutrition; D62 Acute posthemorrhagic anemia; E87.0 Hyperosmolality and hypernatremia; Z66 Do not resuscitate; Z20.822 Contact with and (suspected) exposure to COVID-19; E78.5 Hyperlipidemia, unspecified; F20.9 Schizophrenia, unspecified; I10 Essential (primary) hypertension; E66.01 Morbid (severe) obesity due to excess calories; E83.39 Other disorders of phosphorus metabolism; E87.5 Hyperkalemia; Z68.37 Body mass index [BMI] 37.0-37.9, adult; Z79.899 Other long term (current) drug therapy; Z71.6 Tobacco abuse counseling; Z72.0 Tobacco use
CPT/HCPCS: 31645; 36415; 36569; 36600; 71045; 76775; 80048; 80053; 80061; 80069; 80202; 81001; 82570; 82805; 82962; 83036; 83540; 83550; 83605; 83735; 83880; 84100; 84132; 84156; 84300; 84443; 84484; 84550; 85007; 85014; 85018; 85025; 85027; 85379; 85610; 85730; 86703; 86850; 86900; 86901; 86920; 87040; 87070; 87077; 87081; 87186; 87205; 87340; 87426; 87804; 90935; 93005; 93306; 93970; 94002; 94003; 94640; 94660; 96365; 96366; 96375; 99291; A4605; C9113; G0378; J0171; J0330; J0696; J1815; J1956; J2185; J2248; J2250; J2405; J2704; J7060